=== PATIENT | female | born 1975 | race Caucasian/White ===

== ENCOUNTER 2017-06-12 15:05 | Emergency (ER) | payer BC ==
[2017-06-12] MEDS ORDERED: Albuterol/Ipratropium 3.0-0.5 MG/3 ML Neb Soln NEB ONE (16:24)
--- NOTE | 2017-06-12 16:27 | EDM.PDOC ---
ED HPI GENERAL MEDICAL PROBLEM - General Chief Complaint: Respiratory Problem Stated Complaint: COUGH Time Seen by Provider: 06/12/17 16:14 - History of Present Illness INITIAL COMMENTS - FREE TEXT/NARRATIVE: HISTORY AND PHYSICAL: History of present illness: The patient is a 42-year-old female who has a small child at home with RSV pneumonia and presents with 3 days of cough and sore throat and right ear pain, cough to the point where she is hacking and gagging but she has not had vomiting or diarrhea. She has had low-grade fevers and she is mostly concerned about her child because she does not want to give the child any more infection. She's been eating and drinking normally and is a smoker of a half a pack of cigarettes a day. She has no pulmonary history and she did get her flu shot this year Review of systems: As per history of present illness and below otherwise all systems reviewed and negative. Past medical history: As per history of present illness and as reviewed below otherwise noncontributory. Surgical history: As per history of present illness and as reviewed below otherwise noncontributory. Social history: No reported history of drug or alcohol abuse. Family history: As per history of present illness and as reviewed below otherwise noncontributory. Physical exam: Gen.: Well-developed well-nourished female who is nontoxic and speaking clearly without breathlessness or hoarse voice. Vital signs reviewed by me HEENT: Atraumatic, normocephalic, pupils reactive, negative for conjunctival pallor or scleral icterus, mucous membranes moist, throat clear, neck supple, nontender, trachea midline. No cervical adenopathy or nuchal rigidity Lungs: Clear to auscultation occasional coarse breath sound and fine expiratory wheeze in the left base but no work of breathing stridor, breath sounds equal bilaterally, chest nontender. Heart: S1S2, regular rate and rhythm no overt murmurs Abdomen: Soft, nondistended, nontender. NABS Pelvis: Deferred Genitourinary: Deferred. Rectal: Deferred. Extremities: Atraumatic, negative for cords or calf pain. Neurovascular unremarkable. Neuro: Awake, alert, oriented. Cranial nerves II through XII unremarkable. Cerebellum unremarkable. Motor and sensory unremarkable throughout. Exam nonfocal. Diagnostics: Influenza rapid strep chest x-ray Therapeutics: DuoNeb Impression: Influenza A Definitive disposition and diagnosis as appropriate pending reevaluation and review of above. Throat Pain Score (Numeric/FACES): 5 - Related Data Allergies Allergy/AdvReac Type Severity Reaction Status Date / Time codeine Allergy Anaphylactic Verified 06/12/17 15:32 Shock levofloxacin [From Levaquin] Allergy Anaphylactic Verified 06/12/17 15:32 Shock Home Meds: Home Meds Omeprazole [Omeprazole] 40 mg PO DAILY 06/12/17 [History] Past Medical History - Past Health History Medical/Surgical History: Denies Medical/Surgical History Social & Family History - Tobacco Use Smoking Status *Q: Current Every Day Smoker Years of Tobacco use: 2 Packs/Tins Daily: 0.5 - Caffeine Use Caffeine Use: Reports: Energy Drinks - Recreational Drug Use Recreational Drug Use: No ED ROS GENERAL - Review of Systems Review Of Systems: ROS reveals no pertinent complaints other than HPI. ED EXAM, GENERAL - Physical Exam Exam: See Below (See dictation) Course - Vital Signs Last Recorded V/S: Last Vital Signs Temp 36.3 C 06/12/17 15:39 Pulse 109 H 06/12/17 15:39 Resp 18 06/12/17 15:39 BP 116/74 06/12/17 15:39 Pulse Ox 98 06/12/17 15:39 - Orders/Labs/Meds Orders: Active Orders 24 hr Category Date Time Status RT Aerosol Therapy [RC] ASDIRECTED Care 06/12/17 16:24 Active Chest 2V [CR] Stat Exams 06/12/17 16:24 Taken CULTURE STREP A CONFIRMATION [] Stat Lab 06/12/17 16:54 Results STREP SCRN A RAPID W CULT CONF [] Stat Lab 06/12/17 16:54 Results Meds: Medications Discontinued Medications Generic Name Dose Route Start Last Admin Trade Name Freq PRN Reason Stop Dose Admin Albuterol/Ipratropium 3 ml 06/12/17 16:24 06/12/17 16:54 Duoneb 3.0-0.5 Mg/3 Ml NEB 06/12/17 16:25 3 ml ONETIME ONE Administration Departure - Departure Time of Disposition: 17:44 Disposition: Home, Self-Care 01 Condition: Good Clinical Impression: Influenza A - Discharge Information Referrals: PCP,None [Primary Care Provider] - Forms: ED Department Discharge Additional Instructions: The following information is given to patients seen in the emergency department who are being discharged to home. This information is to outline your options for follow-up care. We provide all patients seen in our emergency department with a follow-up referral. The need for follow-up, as well as the timing and circumstances, are variable depending upon the specifics of your emergency department visit. If you don't have a primary care physician on staff, we will provide you with a referral. We always advise you to contact your personal physician following an emergency department visit to inform them of the circumstance of the visit and for follow-up with them and/or the need for any referrals to a consulting specialist. The emergency department will also refer you to a specialist when appropriate. This referral assures that you have the opportunity for followup care with a specialist. All of these measure are taken in an effort to provide you with optimal care, which includes your followup. Under all circumstances we always encourage you to contact your private physician who remains a resource for coordinating your care. When calling for followup care, please make the office aware that this follow-up is from your recent emergency room visit. If for any reason you are refused follow-up, please contact the [facility] emergency department at and ask to speak to the emergency department charge nurse. [facility] Primary [facility]- Internal Medicine and Family [place] [phone] Push hydration and use [id number] Tylenol or ibuprofen for fevers and pain. Please fill your prescription for Tamiflu and take as directed. Please wear a mask at all times to protect her child when you're around her. Please use cough medicine as needed but please only take cough medicine when you're at home because it will make you drowsy. Please call and follow-up with one of our clinic providers and return to ER as needed and as discussed - My Orders Last 24 Hours: My Active Orders 06/12/17 16:24 RT Aerosol Therapy [RC] ASDIRECTED Chest 2V [CR] Stat 06/12/17 16:54 CULTURE STREP A CONFIRMATION [RM] Stat STREP SCRN A RAPID W CULT CONF [RM] Stat - Assessment/Plan Last 24 Hours: My Active Orders 06/12/17 16:24 RT Aerosol Therapy [RC] ASDIRECTED Chest 2V [CR] Stat 06/12/17 16:54 CULTURE STREP A CONFIRMATION [RM] Stat STREP SCRN A RAPID W CULT CONF [RM] Stat
--- NOTE | 2017-06-14 14:54 | CR ---
EXAM DATE: 06/12/17 PATIENT'S AGE: 42 Patient: ABIGAIL KHAN Facility: [place], [place] Site . Site : [id number] Study: XRay Chest [id number] 5:24:24 PM Ordering Physician: Gil Dunham Final Report: INDICATION: Chest pain, shortness breath. COMPARISON: none TECHNIQUE: Two view chest. FINDINGS: The lungs are clear. The heart, mediastinum and pulmonary vessels are of normal size. There is no evidence of pleural fluid. IMPRESSION: Negative chest. Dictated by Zak Ennis MD @ Jun 12 2017 5:24PM (Electronic Signature) Report Signed by Proxy. AMALIA
== END 2017-06-12 18:19 | disposition home or self-care (01) ==
LOC: MW.ED 15:05
DX: J10.1 Influenza due to other identified influenza virus with other respiratory manifestations (principal); F17.210 Nicotine dependence, cigarettes, uncomplicated; Z88.5 Allergy status to narcotic agent; Z88.1 Allergy status to other antibiotic agents; Z79.899 Other long term (current) drug therapy
CPT/HCPCS: 71046; 71046-26; 87081; 87804; 87880; 94640; 99284; 99284-25